=== PATIENT | female | born 2000 | race Caucasian/White ===

== ENCOUNTER 2020-04-29 23:07 | Emergency (ER) | payer OTHER ==
[~2020-04-29] VITALS: Ht 162.6 cm; Wt 59.9 kg
[2020-04-29 23:30] VITALS: BP 136/80
--- NOTE | 2020-04-29 23:42 | NUR ---
PT CAME TO THE ED C/O LOWER ABDOMINAL PAIN FOR 3-4x DAYS, WITH HEADACHE, DIARRHEA, AND SOB. PT AAOX4, VSS, RESPIRATIONS EVEN AND UNLABORED ON RA W/ NAD NOTED. PT CONNECTED TO THE MONITOR AND PX
[2020-04-30] MEDS ORDERED: HYDROCODONE/APAP 5/325MG 1 EACH TABLET PO ONE
[2020-04-30] MEDS ORDERED: HYDROCODONE/APAP 5/325MG 1 EACH TABLET ONE (00:06)
[2020-04-30 00:17] LABS: APPEARANCE,URINE CLEAR (CLEAR); BILIRUBIN,URINE NEGATIVE (NEGATIVE); BLOOD, URINE NEGATIVE Ery/uL (NEGATIVE); COLOR,URINE YELLOW (YELLOW); KETONES,URINE NEGATIVE (NEGATIVE); LEUKOCYTE ESTERASE ,URINE NEGATIVE (NEGATIVE); NITRITE, URINE NEGATIVE (NEGATIVE); PROTEIN,URINE NEGATIVE (NEGATIVE); UGLUCOSE NEGATIVE (NEGATIVE); UROBILINOGEN,URINE 0.2 EU/dL (0.2)
--- NOTE | 2020-04-30 00:37 | NUR ---
Patient discharged to home in stable condition. Written and verbal after care instructions given. Patient verbalizes understanding of instruction.
== END 2020-04-30 00:37 | disposition home or self-care (01) ==
LOC: ER 23:10
DX: N39.0 Urinary tract infection, site not specified (principal)
CPT/HCPCS: 81000-TC; 84703-TC

== ENCOUNTER 2021-04-15 11:25 | Emergency (ER) | payer OTHER ==
[~2021-04-15] VITALS: Ht 162.6 cm; Wt 61.2 kg
[2021-04-15 11:37] VITALS: BP 113/80
--- NOTE | 2021-04-15 11:40 | NUR ---
THE PATIENT BIB [facility] FOR C/O NECK STIFFNESS AND PAIN X 1 HOUR. NON TRAUMATIC. RATES PAIN 8/10. DENIES SOB. RESPIRATION REGULAR AND UNLABORED. DENIES NUMBNESS/TINGLING IN THE EXTREMITIES. WILL CONTINUE TO MONITOR THE PATIENT.
[2021-04-15] MEDS ORDERED: DIAZ2TAB PO (11:46)
[2021-04-15] MEDS ORDERED: KETOROLAC TROMETHAMINE INJ 30 MG/ML VIAL ONE (11:54)
[2021-04-15] MEDS ORDERED: DIAZEPAM 5 MG TABLET PO ONE (12:00)
[2021-04-15] MEDS ORDERED: KETOROLAC TROMETHAMINE INJ 30 MG/ML VIAL IM ONE (12:00)
[2021-04-15] MEDS ORDERED: DIAZEPAM 5 MG TABLET ONE (12:01)
--- NOTE | 2021-04-15 12:04 | NUR ---
The patient alert and oriented x4. Patient discharged to home in stable condition. Written and verbal after care instructions given. Patient verbalizes understanding of instruction. The patient left ER with mother.
== END 2021-04-15 12:06 | disposition home or self-care (01) ==
LOC: ER 11:28
DX: S13.8XXA Sprain of joints and ligaments of other parts of neck, initial encounter (principal); G89.29 Other chronic pain; F17.200 Nicotine dependence, unspecified, uncomplicated; Z79.899 Other long term (current) drug therapy; X58.XXXA Exposure to other specified factors, initial encounter; Y93.89 Activity, other specified; Y92.89 Other specified places as the place of occurrence of the external cause; Y99.8 Other external cause status
CPT/HCPCS: 96372; 99283; J1885